=== PATIENT | female | born 1950 | race Caucasian/White ===

== ENCOUNTER 2016-08-24 10:25 | Outpatient (CLI) | payer OTHER ==
--- NOTE | 2016-08-24 13:06 | DIAGNOSTIC IMAGING REPORT ---
PROCEDURE: MR CERVICAL SPINE W/O CONT INDICATION: NECK PAIN WITH UE RADICULOPATHY, bilateral hand numbness TECHNIQUE: T1, T2, and STIR sagittal sequences. T2 and GRE axial sequences. Bilateral T2 sagittal obliques. COMPARISON: None. FINDINGS: Alignment and curvature: Intact craniocervical junction and normal cervical spine alignment. Vertebral bodies: There is moderate intermediate to low signal pannus formation surrounding the odontoid process with a thickness of approximately 6 mm, causing odontoid tip irregularity. No osseous edema. There are minor anterior endplate spurs from C3 through C7. Vertebral body heights are normal. Disc spaces: Disc desiccation C3-4 through C6-7 with moderate posterior disc height loss C4-5 and C5-6. Spinal canal: The posterior fossa structures are normal. The cervical cord. No suspicious central canal masses. Paraspinal soft tissues: No prevertebral soft tissue thickening or edema. No unusual masses. C2-3: Mild facet hypertrophy. This causes mild right foraminal narrowing C3-4: Mild right paracentral/foraminal disc osteophyte complex and moderate to significant facet arthropathy. This causes moderately severe right foraminal narrowing and moderate left foraminal narrowing. C4-5: Mild circumferential disc osteophyte complex and moderate facet arthropathy cause mild right, and moderately severe left foraminal narrowing. Diffuse disc osteophyte complex flattens the anterior CSF and mild ligamentum flavum hypertrophy contributes to slight posterior CSF effacement. The AP diameter of the central canal is about 8.5 mm. C5-6: Moderate circumferential disc osteophyte complex flattening the anterior CSF and cord shape. Moderately severe facet hypertrophy causing mild right and moderately severe left foraminal narrowing. From the disc level, centrally herniated disc material extends caudally along the C6 vertebral body to the C6-7 disc. C6-7: Just above the C6-7 disc level, there is a prominent focal central herniation completely effacing anterior CSF, distorting the cord shape and displacing it posteriorly. No abnormal cord signal. AP diameter of the central canal at this location is less than 6 mm. Disc herniation superimposed on mild disc osteophyte complex. There is moderate facet hypertrophy at this level. Mild bilateral foraminal narrowing. C7-T1: Normal. IMPRESSION: 1. There has been a central disc herniation, likely at the C6-7 level with disc material extending centrally cranially (versus C5-6 disc herniation with material extending caudally). Nonetheless, there is a moderately severe central canal stenosis at the C6-7 level distorting the cord shape without causing acute cord edema. 2. There is moderate central canal stenosis at the C4-5 level secondary to disc osteophyte complex and ligamentum flavum hypertrophy. 3. There is fairly significant multilevel facet arthropathy which also contributes to moderately severe bilateral foraminal narrowing at many levels ( right C3-4, and left C4-5, left C5-6, and to a lesser extent left C3-4). 4. Hypointense, expansile soft tissue thickening surrounding the odontoid process causing slight amount of erosive change without edema. No significant central canal stenosis at this point. This may be pannus formation from rheumatoid arthritis. Correlate clinically.
== END 2016-08-24 23:00 ==
LOC: MRI SRH 10:25
DX: M50.223 Other cervical disc displacement at C6-C7 level (principal); M48.02 Spinal stenosis, cervical region

== ENCOUNTER 2016-09-21 11:42 | Outpatient (CLI) | payer OTHER ==
--- NOTE | 2016-09-21 12:28 | DIAGNOSTIC IMAGING REPORT ---
PROCEDURE: XR CERVICAL SPINE 4 OR 5 VIEW INDICATION: RULE OUT INSTABILITY TECHNIQUE: Five views. COMPARISON: None. FINDINGS: Moderate degenerative changes most prominent at C5-6 and C6-7. Straightening of the cervical spine suggestive of muscular spasm. There is no fracture. No evidence of instability. Odontoid, lateral masses of C1 and prevertebral soft tissues are normal. IMPRESSION: 1. Moderate degenerative changes the 2. No evidence of instability
== END 2016-09-21 23:00 ==
LOC: XR SRH 11:42
DX: M47.812 Spondylosis without myelopathy or radiculopathy, cervical region (principal)
CPT/HCPCS: 90074; 95059; 95150; 98020; 98460